=== PATIENT | female | born 1950 | race Caucasian/White ===

== ENCOUNTER → 2017-03-10 | Outpatient (CLI) | payer MEDICARE | END | disposition home or self-care (01) | LOC: CFH 08:44 | PROVIDERS: ATTEND Internal Medicine | DX: Z13.820 Encounter for screening for osteoporosis (principal); M85.88 Other specified disorders of bone density and structure, other site | CPT/HCPCS: 77080 ==

== ENCOUNTER 2017-07-27 07:11 | Day surgery (SDC) | payer MEDICARE ==
[~2017-07-27] VITALS: Ht 165.1 cm; Wt 82.7 kg
[~2017-07-27 07:11] MED LIST: BUPIVACAINE/PF 0.5% ONE; LIDOCAINE/PF 1%, 30ML ONE
[2017-07-27] MEDS ORDERED: LACTATED RINGERS 1,000 ML IV SCH (07:26)
[2017-07-27 08:04] VITALS: BP 120/72
[2017-07-27] MEDS ORDERED: PROPOFOL 10 MG/ML, 20ML ONE (08:18)
[2017-07-27] MEDS ORDERED: ONDANSETRON 2MG/ML, 2ML ONE (08:18)
[2017-07-27] MEDS ORDERED: KETOROLAC 30 MG/1 ML ONE (08:18)
[2017-07-27] MEDS ORDERED: MIDAZOLAM 1 MG/ML, 2ML ONE (08:18)
[2017-07-27] MEDS ORDERED: DEXAMETHASONE 4 MG/ML, 5ML ONE (08:18)
[2017-07-27] MEDS ORDERED: CEFAZOLIN 1,000 MG ONE (08:18)
[2017-07-27 08:20] LABS: ASPARTATE AMINO TRANSFERASE 22 U/L (15-37); BLOOD UREA NITROGEN 23 mg/dL (7-18)
[2017-07-27] MEDS ORDERED: LISI-170 PO (08:23)
[2017-07-27] MEDS ORDERED: SERT100T5 PO (08:23)
[2017-07-27] MEDS ORDERED: GABA300C10 PO (08:23)
[2017-07-27] MEDS ORDERED: TRAM50TA2 PO (08:23)
[2017-07-27] MEDS ORDERED: MELO7.5T31 PO (08:23)
[2017-07-27] MEDS ORDERED: OXYC-302 PO (08:23)
[2017-07-27] MEDS ORDERED: LORA0.5T PO (08:23)
[2017-07-27] MEDS ORDERED: TIZA2TAB PO (08:23)
[2017-07-27] MEDS ORDERED: AMLO5TAB2 PO (08:23)
[2017-07-27] MEDS ORDERED: TRAZ150T62 PO (08:23)
[2017-07-27] MEDS ORDERED: ASPI-496 PO (08:23)
[2017-07-27] MEDS ORDERED: NORT25CA PO (08:23)
[2017-07-27] MEDS ORDERED: LOVA20TA2 PO (08:23)
[2017-07-27] MEDS ORDERED: LAMO200T PO (08:23)
[2017-07-27] MEDS ORDERED: hydrALAzine 20 MG/ML, 1ML IV PRN (09:00)
[2017-07-27] MEDS ORDERED: HYDROmorphone 1 MG/ML, 1ML IV PRN (09:00)
[2017-07-27] MEDS ORDERED: FENTANYL PF 100 MCG/2ML IV PRN (09:00)
[2017-07-27] MEDS ORDERED: MEPERIDINE/PF 25MG/0.5ML IVPush PRN (09:00)
[2017-07-27] MEDS ORDERED: OXYcodone 5 MG/5 ML ORAL.SOL UDC PO PRN (09:00)
[2017-07-27] MEDS ORDERED: PROMETHAZINE 25 MG/ML, 1ML IV PRN (09:00)
[2017-07-27] MEDS ORDERED: ACETAMINOPHEN 325 MG TABLET PO PRN (09:00)
[2017-07-27] MEDS ORDERED: LABETALOL 5MG/ML, 20ML IV PRN (09:00)
[2017-07-27] MEDS ORDERED: ONDANSETRON 2MG/ML, 2ML IVPush PRN (09:00)
[2017-07-27] MEDS ORDERED: ACETAMINOPHEN 650 MG/20.3 ML UDC ONE (09:10)
[2017-07-27] MEDS ORDERED: FENTANYL PF 100 MCG/2ML ONE (09:11)
[2017-07-27] MEDS ORDERED: OXYcodone 5 MG/5 ML ORAL.SOL UDC ONE (09:11)
== END 2017-07-27 10:35 ==
LOC: OUT 07:11
PROVIDERS: ATTEND Orthopaedic Surgery
DX: G56.02 Carpal tunnel syndrome, left upper limb (principal); M65.4 Radial styloid tenosynovitis [de Quervain]; K21.9 Gastro-esophageal reflux disease without esophagitis; Z86.73 Personal history of transient ischemic attack (TIA), and cerebral infarction without residual deficits; Z87.39 Personal history of other diseases of the musculoskeletal system and connective tissue; Z79.82 Long term (current) use of aspirin
CPT/HCPCS: 25000; 29848; 36415; 80053; 93005; J0690; J1100; J1885; J2250; J2405; J2704; J3010; J3490; J7120

== ENCOUNTER → 2018-06-14 | Outpatient (CLI) | payer MEDICARE ==
[~2018-06-14] MED LIST changes: +AMLO5TAB2 PO; +ASPI-496 PO; -BUPIVACAINE/PF 0.5% ONE; +GABA300C10 PO; +LAMO200T2 PO; -LIDOCAINE/PF 1%, 30ML ONE; +LISI-170 PO; +LORA0.5T PO; +LOVA20TA2 PO; +MELO7.5T31 PO; +NORT25CA PO; +OXYC-302 PO; +SERT100T5 PO; +TIZA2TAB PO; +TRAM50TA2 PO; +TRAZ150T62 PO
== END | disposition home or self-care (01) ==
LOC: CFH 15:39
PROVIDERS: ATTEND Pain Medicine Pain Medicine
DX: M51.26 Other intervertebral disc displacement, lumbar region (principal); M48.07 Spinal stenosis, lumbosacral region; M43.16 Spondylolisthesis, lumbar region; M47.817 Spondylosis without myelopathy or radiculopathy, lumbosacral region
CPT/HCPCS: 72148

== ENCOUNTER → 2018-12-16 | Outpatient (CLI) | payer MEDICARE ==
[~2018-12-16] MED LIST changes: +AMLO-150 PO; -AMLO5TAB2 PO; -NORT25CA PO; +NORT25CA78 PO; +SERT100T32 PO; -SERT100T5 PO
== END | disposition home or self-care (01) ==
LOC: RAD 11:15
PROVIDERS: ATTEND Nurse Practitioner Family
DX: R91.8 Other nonspecific abnormal finding of lung field (principal); J90 Pleural effusion, not elsewhere classified; Z87.891 Personal history of nicotine dependence
CPT/HCPCS: 71250

== ENCOUNTER → 2019-09-28 | Outpatient (CLI) | payer MEDICARE ==
[~2019-09-28] MED LIST changes: -TIZA2TAB PO; +TIZA2TAB2 PO
== END | disposition home or self-care (01) ==
LOC: EDSTATUS 05-30 09:30 → CFH 10:28
DX: Z12.31 Encounter for screening mammogram for malignant neoplasm of breast (principal); M81.0 Age-related osteoporosis without current pathological fracture; N95.9 Unspecified menopausal and perimenopausal disorder
CPT/HCPCS: 77063; 77067; 77080

== ENCOUNTER → 2021-04-17 | Outpatient (CLI) | payer MEDICARE ==
[~2021-04-17] MED LIST changes: -LAMO200T2 PO; +LAMO200T6 PO; -OXYC-302 PO; +OXYC1TAB14 PO; +TIZA-106 PO; -TIZA2TAB2 PO
== END | disposition home or self-care (01) ==
LOC: CVU 08:39
PROVIDERS: ATTEND Student in an Organized Health Care Education/Training Program
DX: I08.0 Rheumatic disorders of both mitral and aortic valves (principal); I11.9 Hypertensive heart disease without heart failure; I48.91 Unspecified atrial fibrillation
CPT/HCPCS: 93306; 93356